=== PATIENT | male | born 1990 | race Caucasian/White ===

== ENCOUNTER 2016-08-11 20:52 | Emergency (ER) | payer OTHER ==
[~2016-08-11] VITALS: Ht 165.1 cm; Wt 82.3 kg
[2016-08-11 20:57] VITALS: BP 145/83; PULSE 91; TEMP 37; O2SAT 97; Ht 165.1 cm; Wt 82.3 kg
--- NOTE | 2016-08-11 21:39 | EMERGENCY ROOM VISIT NOTE ---
History Report prepared by Brandon: Paula Watters Under the Supervision of: Dr. Krissy Epperson M.D. First contact with patient: 21:24 Chief Complaint: COUGH Stated Complaint: COUGHING UP BLOOD Nursing Triage Summary: cough, headache. "antoinette been feeling warm". cough has not had productive cough. pt states tonight "i was coughing up blood" describes suptum as "it had red splotches in it". muscular chest pain and head pressure with cough. sinus congestion when laying down. not a smoker. History of Present Illness The patient is a 26 year old male who presents to the Emergency Room with complaints of a persistent cough. He reports that the symptoms started 3 days ago and he rates his discomfort as a 1 out of 10 in severity. He states that he experienced some hemoptysis, prompting him to visit the ED. He reports that he is also experiencing rhinorrhea. He also states that he has a history of smoking. He also admits to a headache and some mild chest discomfort with his cough. Source of History: patient Onset: 3 days ago Position: chest Symptom Intensity: 1/10 Quality: other (cough) Timing: other (persistent) Associated Symptoms: + chest pain (chest discomfort), + headache Note: Associated Symptoms: rhinorrhea, hemoptysis Review of Systems See HPI for pertinent positives & negatives. A total of 10 systems reviewed and were otherwise negative. Past Medical & Surgical Medical Problems: (1) No significant past medical history Social History Smoking Status: Current Some Day Smoker Alcohol Use: none Marital Status: single Housing Status: lives with family Occupation Status: unemployed Current/Historical Medications Miscellaneous Medications None (Patient States No Home Meds) Allergies Coded Allergies: No Known Allergies (Unverified , 08/11/16) Physical Exam Vital Signs Date Time Temp Pulse Resp B/P Pulse Ox O2 Delivery O2 Flow Rate FiO2 08/11/16 21:21 96 Room Air 08/11/16 20:57 37.0 91 20 145/83 97 Room Air Physical Exam CONSTITUTIONAL: The patient appears to be in no distress. HEENT: No icterus, moist mucous membranes NECK: No meningismus, trachea is midline. CARDIOVASCULAR: Regular rate, normal perfusion RESPIRATORY: Unlabored breathing. Clear to auscultation. GASTROINTESTINAL: Non-tender GENITOURINARY: No flank tenderness MUSCULOSKELETAL: Full range of motion NEUROLOGIC: No acute gross focal deficits. PSYCHIATRIC: Normal affect SKIN: Normal for ethnicity. Medical Decision & Procedures ER Provider Diagnostic Interpretation: This X-Ray was reviewed and interpreted by myself as we do not have a radiologist on staff overnight. Chest X-Ray Preliminary read shows no acute disease as read by me. ED Course 2126: Past medical records reviewed. The patient was evaluated in room B8. A complete history and physical examination was performed. 2149: I reevaluated the patient. He is feeling well and resting comfortably. I discussed his results and discharge instructions and he verbalized complete understanding and agreement. Medical Decision 26-year-old with clinical history consistent with upper respiratory infection/ bronchitis presents into the emergency room around pneumonia. Chest x-ray normal. Counseled regarding fever control and symptomatic management. Impression Primary Impression: Bronchitis Scribe Attestation The scribe's documentation has been prepared under my direction and personally reviewed by me in its entirety. I confirm that the note above accurately reflects all work, treatment, procedures, and medical decision making performed by me. Departure Information Dispostion Home / Self-Care Referrals No Doctor, Assigned (PCP) Forms HOME CARE DOCUMENTATION FORM, IMPORTANT VISIT INFORMATION Patient Instructions Chest Cold (Bronchitis) - [facility], My [facility]
--- NOTE | 2016-08-11 21:48 | DIAGNOSTIC IMAGING REPORT ---
CHEST 2 VIEWS ROUTINE CLINICAL HISTORY: cough, (?) hemoptysis dyspnea COMPARISON STUDY: 11/14/2012 FINDINGS: The bones soft tissues and hemidiaphragms are normal. The cardiomediastinal silhouette is normal. The lungs are clear. The pulmonary vasculature is normal. IMPRESSION: Negative chest. Electronically signed by: Anderson Cintron M.D. 08/11/2016 9:46 PM Dictated Date/Time: 08/11/2016 9:46 PM
== END 2016-08-11 22:00 | disposition home or self-care (01) ==
LOC: C.EDB 20:53
DX: J40 Bronchitis, not specified as acute or chronic (principal); F17.210 Nicotine dependence, cigarettes, uncomplicated